=== PATIENT | male | born 1970 | race Asian ===

== ENCOUNTER 2021-12-17 04:03 | Inpatient (IN) | payer OTHER ==
[~2021-12-17] VITALS: Ht 175.3 cm; Wt 80.9 kg
[2021-12-17 04:55] LABS: Basophils # (auto) 0.1 10 ^3/uL (0-0.2); Basophils % (auto) 1.1 % (0.0-2.0); Eosinophils # (auto) 0 10 ^3/uL (0-0.8); Eosinophils % (auto) 0.5 % (0.0-7.0); Hematocrit 45.2 % (41.0-53.0); Hemoglobin 15.7 g/dL (13.5-17.5); Lymphocytes # (auto) 1.8 10 ^3/uL (0.4-5.4); Lymphocytes % (auto) 17.6 % (10.0-50.0); Mean Corpuscular Hgb Conc. 34.7 g/dL (32.0-36.0); Mean Corpuscular Volume 89.4 fL (80.0-100.0); Monocytes # (auto) 0.5 10 ^3/uL (0-1.3); Monocytes % (auto) 4.7 % (0.0-12.0); Neutrophils # (auto) 7.7 10 ^3/uL (1.6-8.6); Neutrophils % (auto) 76.1 % (37.0-80.0); Nucleated Red Blood Cells % 0.1 %; Red Blood Cells 5.06 10^6/uL (4.5-5.90); Red Cell Distribution Width 13.4 % (11.8-14.3); White Blood Cell 10.1 10^3/uL (4.4-10.8)
[2021-12-17 05:13] LABS: Albumin 4.3 g/dL (3.4-5.0); Calcium 9.7 mg/dL (8.5-10.1); Magnesium 2.5 mg/dL (1.6-2.6); Potassium 4.6 mmol/L (3.5-5.1)
[2021-12-17 05:16] LABS: Bilirubin, Total 0.3 mg/dL (0.2-1.0); Total Protein 8.9 g/dL (6.4-8.2)
[2021-12-17] MEDS ORDERED: ASPirin 81 mg TAB PO ONE (06:45)
[2021-12-17] MEDS ORDERED: HEPARIN SODIUM (PORCINE) 5000 UNITS/ML 1ML VIAL IV ONE ×2 (06:45→08:15)
[2021-12-17] MEDS ORDERED: CLOPIDOGREL BISULFATE 75 MG TAB PO ONE (06:45)
[2021-12-17] MEDS ORDERED: MORPHINE SULFATE INJECTION 2 MG/ML SYRG IV ONE (07:00)
[2021-12-17] MEDS ORDERED: NITROGLYCERIN 0.4 MG SL TAB SL ONE (07:00)
[2021-12-17] MEDS ORDERED: HEPARIN SODIUM (PORCINE) 5000 UNITS/ML 1ML VIAL ONE (08:56)
[2021-12-17] MEDS ORDERED: fentaNYL CITRATE 100 MCG/2 ML VL ONE (08:57)
[2021-12-17] MEDS ORDERED: VERAPAMIL 2.5MG/ML INJ 2ML VIAL IV ONE (08:57)
[2021-12-17] MEDS ORDERED: MIDAZOLAM HCL 2MG/2ML 2ml VIAL (1mg/ml) ONE (08:57)
[2021-12-17] MEDS ORDERED: SODIUM CHL 0.9% 0 ML ONE (09:00)
[2021-12-17] MEDS ORDERED: ANGIOMAX 250 MG VIAL IV ONE (09:00)
[2021-12-17] MEDS ORDERED: IODIXANOL 320MG/ML 100ML BTL IV ONE ×2 (09:02→09:56)
[2021-12-17] MEDS ORDERED: LIDOCAINE 2%HCL (LOCAL ANESTH.) INJ 10ml MDV ONE (09:02)
[2021-12-17] MEDS ORDERED: TICAGRELOR 90 MG TAB ONE (09:57)
[2021-12-17] MEDS ORDERED: LISINOPRIL 10 MG TAB PO SCH (10:00)
[2021-12-17] MEDS ORDERED: NITROGLYCERIN 0.4 MG SL TAB SL PRN (10:30)
[2021-12-17] MEDS ORDERED: DEXTROSE (50%) 50ML SYRG IV PRN (10:30)
[2021-12-17] MEDS ORDERED: MORPHINE SULFATE INJECTION 2 MG/ML SYRG IV PRN (10:30)
[2021-12-17] MEDS ORDERED: LISI20TA28 PO (11:16)
[2021-12-17] MEDS ORDERED: CARV3.1240 PO (11:16)
[2021-12-17] MEDS ORDERED: ASPI1TAB19 PO (11:16)
[2021-12-17] MEDS ORDERED: GLIP5TAB12 PO (11:16)
[2021-12-17] MEDS ORDERED: PANT40T PO (11:16)
[2021-12-17] MEDS ORDERED: ATOR40TA52 PO (11:16)
[2021-12-17] MEDS: PANTOPRAZOLE 40 MG TAB PO SCH (11:45)
[2021-12-17] MEDS: CARVEDILOL 3.125 MG TAB PO SCH ×2 (11:46→22:28)
[2021-12-17] MEDS: ATORVASTATIN 20 MG TAB PO SCH (11:46)
[2021-12-17] MEDS: ACCU-CHEK COMFORT CURVE STRIP VI SCH ×3 (11:47→22:10)
[2021-12-17] MEDS: LISINOPRIL 10 MG TAB PO SCH (11:58)
[2021-12-17] MEDS: glipiZIDE 5 MG TAB PO SCH (11:58)
[2021-12-17] MEDS ORDERED: LABETALOL HCL 5 MG/ML 4ML SYRINGE IV PRN (13:30)
[2021-12-17] MEDS: InsuLIN REG 1unit/0.01ml Soln (100units/ml) SC SCH ×3 (13:40→22:17)
[2021-12-17 13:52] VITALS: BP 149/110
[2021-12-17 15:17] LABS: Urine Bacteria NONE SEEN /hpf (None Seen); Urine Blood 1+ /uL (Negative); Urine WBC <1 /hpf (0 - 3)
[2021-12-17] MEDS ORDERED: AMLO-496 PO (15:17)
[2021-12-17] MEDS ORDERED: ROSU1TAB14 PO (15:17)
[2021-12-17] MEDS ORDERED: EMPA1TAB3 PO (15:17)
[2021-12-17] MEDS ORDERED: METF-762 PO (15:17)
[2021-12-17] MEDS: SODIUM CHLOR 0.9% PF (SALINE LOCK) 10ML VIAL/SYR IV SCH ×2 (15:26→22:19)
[2021-12-17 16:20] VITALS: BP 122/86
[2021-12-17 19:45] VITALS: BP 111/29
[2021-12-17 22:00] VITALS: BP 111/79
[2021-12-17] MEDS: TICAGRELOR 90 MG TAB PO SCH (22:20)
[2021-12-18 05:00] VITALS: BP 93/70
[2021-12-18] MEDS: SODIUM CHLOR 0.9% PF (SALINE LOCK) 10ML VIAL/SYR IV SCH ×3 (05:20→22:08)
[2021-12-18] MEDS: InsuLIN REG 1unit/0.01ml Soln (100units/ml) SC SCH ×4 (05:41→22:14)
[2021-12-18] MEDS: ACCU-CHEK COMFORT CURVE STRIP VI SCH ×4 (05:41→22:10)
[2021-12-18 06:10] LABS: Basophils # (auto) 0.1 10 ^3/uL (0-0.2); Basophils % (auto) 0.8 % (0.0-2.0); Eosinophils # (auto) 0.1 10 ^3/uL (0-0.8); Eosinophils % (auto) 1.3 % (0.0-7.0); Hematocrit 43.7 % (41.0-53.0); Hemoglobin 15.3 g/dL (13.5-17.5); Lymphocytes # (auto) 1.7 10 ^3/uL (0.4-5.4); Lymphocytes % (auto) 19.8 % (10.0-50.0); Mean Corpuscular Hemoglobin 31.1 pg (28.0-32.0); Mean Corpuscular Hgb Conc. 35.1 g/dL (32.0-36.0); Mean Corpuscular Volume 88.8 fL (80.0-100.0); Monocytes # (auto) 0.9 10 ^3/uL (0-1.3); Monocytes % (auto) 10.2 % (0.0-12.0); Neutrophils % (auto) 67.9 % (37.0-80.0); Red Blood Cells 4.92 10^6/uL (4.5-5.90); White Blood Cell 8.8 10^3/uL (4.4-10.8)
[2021-12-18 06:25] LABS: Albumin 3.6 g/dL (3.4-5.0); Calcium 9.6 mg/dL (8.5-10.1); Potassium 4.3 mmol/L (3.5-5.1)
[2021-12-18 06:26] LABS: BUN/Creatinine Ratio 15.6
[2021-12-18 06:29] LABS: Bilirubin, Total 0.6 mg/dL (0.2-1.0); Total Protein 8.1 g/dL (6.4-8.2)
[2021-12-18 06:36] LABS: Cholesterol 166 mg/dL (< 200); HDL Cholesterol 33 mg/dL (40-59); LDL Cholesterol 99 mg/dL (< 100); Triglycerides 269 mg/dL (< 150)
[2021-12-18 08:20] VITALS: BP 98/73
[2021-12-18] MEDS: ASPirin 81 mg TAB PO SCH (09:50)
[2021-12-18] MEDS: glipiZIDE 5 MG TAB PO SCH (10:00)
[2021-12-18] MEDS: PATIENTS OWN MEDICATION PO SCH (10:09)
[2021-12-18] MEDS: TICAGRELOR 90 MG TAB PO SCH (10:09)
[2021-12-18] MEDS: ATORVASTATIN 20 MG TAB PO SCH (10:10)
[2021-12-18] MEDS: CARVEDILOL 3.125 MG TAB PO SCH ×2 (10:10→22:10)
[2021-12-18] MEDS: PANTOPRAZOLE 40 MG TAB PO SCH (10:11)
[2021-12-18] MEDS: LISINOPRIL 10 MG TAB PO SCH (10:11)
[2021-12-18 12:10] VITALS: BP 106/77
[2021-12-18 16:15] VITALS: BP 108/72
[2021-12-18] MEDS ORDERED: CLOPIDOGREL 300 MG TAB PO ONE (22:00)
[2021-12-18 22:04] VITALS: BP 98/63
[2021-12-18] MEDS ORDERED: CLOPIDOGREL 300 MG TAB ONE (22:26)
[2021-12-19 04:51] VITALS: BP 111/71
[2021-12-19] MEDS: SODIUM CHLOR 0.9% PF (SALINE LOCK) 10ML VIAL/SYR IV SCH ×2 (05:50→14:12)
[2021-12-19] MEDS: InsuLIN REG 1unit/0.01ml Soln (100units/ml) SC SCH ×2 (06:35→14:11)
[2021-12-19] MEDS: ACCU-CHEK COMFORT CURVE STRIP VI SCH ×2 (06:35→11:30)
[2021-12-19 08:10] VITALS: BP 95/63
[2021-12-19] MEDS: LISINOPRIL 10 MG TAB PO SCH (09:26)
[2021-12-19] MEDS: glipiZIDE 5 MG TAB PO SCH (09:26)
[2021-12-19] MEDS: ATORVASTATIN 20 MG TAB PO SCH (09:27)
[2021-12-19] MEDS: PANTOPRAZOLE 40 MG TAB PO SCH (09:27)
[2021-12-19] MEDS: CARVEDILOL 3.125 MG TAB PO SCH (09:27)
[2021-12-19] MEDS: ASPirin 81 mg TAB PO SCH (09:27)
[2021-12-19] MEDS: PATIENTS OWN MEDICATION PO SCH (09:28)
[2021-12-19 12:10] VITALS: BP 101/71
[2021-12-19] MEDS ORDERED: ASPI1CHW15 PO (12:34)
[2021-12-19] MEDS ORDERED: CLOP75TA70 PO (12:34)
[2021-12-19] MEDS ORDERED: CAR3125T PO (12:34)
[2021-12-19] MEDS ORDERED: CLOPIDOGREL BISULFATE 75 MG TAB PO SCH (22:00)
== END 2021-12-19 16:00 | disposition home or self-care (01) | DRG 247 ==
LOC: ER 04:03 → TELE-WESTW 10:19
PROVIDERS: ADMIT Internal Medicine; ATTEND Internal Medicine
PROC: 027036Z Dilation of Coronary Artery, One Artery with Three Drug-eluting Intraluminal Devices, Percutaneous Approach (ICD-10-PCS; principal; 2021-12-17)
PROC: 4A023N7 Measurement of Cardiac Sampling and Pressure, Left Heart, Percutaneous Approach (ICD-10-PCS; 2021-12-17)
PROC: B211YZZ Fluoroscopy of Multiple Coronary Arteries using Other Contrast (ICD-10-PCS; 2021-12-17)
PROC: B215YZZ Fluoroscopy of Left Heart using Other Contrast (ICD-10-PCS; 2021-12-17)
PROC: B240ZZ3 Ultrasonography of Single Coronary Artery, Intravascular (ICD-10-PCS; 2021-12-17)
DX: I21.4 Non-ST elevation (NSTEMI) myocardial infarction (principal); N18.30 Chronic kidney disease, stage 3 unspecified; E78.5 Hyperlipidemia, unspecified; E11.22 Type 2 diabetes mellitus with diabetic chronic kidney disease; I25.5 Ischemic cardiomyopathy; I12.9 Hypertensive chronic kidney disease with stage 1 through stage 4 chronic kidney disease, or unspecified chronic kidney disease; I25.10 Atherosclerotic heart disease of native coronary artery without angina pectoris; Z79.02 Long term (current) use of antithrombotics/antiplatelets; Z20.822 Contact with and (suspected) exposure to COVID-19; Z79.82 Long term (current) use of aspirin; Z79.899 Other long term (current) drug therapy; Z82.49 Family history of ischemic heart disease and other diseases of the circulatory system; Z87.891 Personal history of nicotine dependence
CPT/HCPCS: 36415; 71045; 80053; 80061; 81001; 82962; 83036; 83735; 83880; 84484; 85025; 86850; 86900; 86901; 93005; 93306; 96374; 96375; 99152; 99153; 99291; C1874; C1887; G0378; J1815; J2001; J2250; Q9967